=== PATIENT | male | born 1970 | race African-American/Black ===

== ENCOUNTER 2016-09-08 14:37 | Emergency (ER) | payer OTHER ==
--- NOTE | 2016-09-08 15:01 | ED NURSING NOTES ---
Clinical Report - Nurses [facility] [place] [address] 09/08/2016 14:41 Patient: CHESTER GATES TRIAGE Triage time 14:49. Acuity: LEVEL 5. Chief Complaint: LEFT EAR PAIN. Alert. No acute distress. ELIA COMA SCORE: Elia Coma Scale: 15- eyes open spontaneously (4); best verbal response- oriented x 4 (5); best motor response- obeys commands (6). --14:52 Rachele Silverio R.N. 14:49 09/08/16. BP: 148/80. HR: 94. RR: 16. O2 saturation: 98%. Temp: 96 F (oral). Pain level now: 8/10. --14:52 Rachele Silverio R.N. Weight: 81.6 kg stated. Height/Length: 66 inches Per Patient. BMI: 29. --14:51 Rachele Silverio R.N. Medications None. --14:50 Rachele Silverio R.N. Medication/allergy information source: the patient. --14:52 Rachele Silverio R.N. Allergies No Known Drug Allergy. --14:50 Rachele Silverio R.N. History Arrived by private vehicle. Historian: patient. Unaccompanied. Primary physician (Devi). Onset. (about 1 week). SOCIAL HX: Never smoker. No alcohol use or drug use. FALL RISK ASSESSMENT: Fall risk assessment completed. No fall risk identified. FUNCTIONAL ASSESSMENT: Functional assessment: no impairments noted. LEARNING NEEDS ASSESSMENT: The learning needs assessment revealed no barriers. --14:52 Rachele Silverio R.N. PROBLEMS: no known problems. ADDITIONAL SURGERIES: no known surgeries. Assessment GENERAL / NEURO / PSYCH: Alert. Oriented X 4. Appears in no acute distress. Patient appears calm and cooperative. RESPIRATORY: Respirations not labored. SKIN: Skin is warm and dry. --14:52 Rachele Silverio R.N. Interventions ID band on patient. To treatment room. --14:52 Rachele Silverio R.N. PHYSICAL ASSESSMENT 14:53 09/08/16. Ambulatory to room. GENERAL / NEURO / PSYCH: Alert. Appears in no acute distress. RESPIRATORY: Respirations not labored. SKIN: Skin is warm and dry. --14:53 Rachele Silverio R.N. NURSING PROGRESS NOTES 14:53 09/08/16. Head of bed elevated. Call light placed in reach. Side rails up x 1. Bed placed in lowest position. Brakes of bed on. --14:53 Rachele Silverio R.N. DISPOSITION / DISCHARGE Departure time: 15:10 Sep 08 2016. Condition at departure: stable. The goals identified in the patient's plan of care were met. No learning barriers present. Discharge instructions provided and reviewed with the patient. Reviewed warnings (Pt instructed not to drive while taking Benadryl). Reviewed medication(s) side effects, precautions, dosing and course information. Prescription(s) given to the patient (Sudafed, Motrin, Amoxicillin, Diphenhydramine). Reviewed referral to a primary care physician for followup. Patient verbalized understanding. Written instructions provided in [place]. The patient was discharged home. He left the Emergency Department ambulatory and via private vehicle. Patient driving. ( Pt dc'd in stable condition, ambulatory, VSS, afebrile, questions were answered, Pt verbalized understanding of DC POC.). --15:11 Sudhir Hinojosa R.N. 15:10 09/08/16. BP: 139/76. HR: 85. RR: 16. O2 saturation: 99% on room air. Temp: 97.8 F. Pain level now: 10/06. --15:11 Sudhir Hinojosa R.N. Locked/Released at 09/08/2016 15:15 by Sudhir Hinojosa R.N.
--- NOTE | 2016-09-08 15:01 | ED NURSING NOTES ---
Clinical Report - Nurses [facility] [place] [place] [address] 09/08/2016 14:41 Patient: CHESTER GATES TRIAGE Triage time 14:49. Acuity: LEVEL 5. Chief Complaint: LEFT EAR PAIN. Alert. No acute distress. ELIA COMA SCORE: Elia Coma Scale: 15- eyes open spontaneously (4); best verbal response- oriented x 4 (5); best motor response- obeys commands (6). --14:52 Rachele Silverio R.N. 14:49 09/08/16. BP: 148/80. HR: 94. RR: 16. O2 saturation: 98%. Temp: 96 F (oral). Pain level now: 8/10. --14:52 Rachele Silverio R.N. Weight: 81.6 kg stated. Height/Length: 66 inches Per Patient. BMI: 29. --14:51 Rachele Silverio R.N. Medications None. --14:50 Rachele Silverio R.N. Medication/allergy information source: the patient. --14:52 Rachele Silverio R.N. Allergies No Known Drug Allergy. --14:50 Rachele Silverio R.N. History Arrived by private vehicle. Historian: patient. Unaccompanied. Primary physician (Devi). Onset. (about 1 week). SOCIAL HX: Never smoker. No alcohol use or drug use. FALL RISK ASSESSMENT: Fall risk assessment completed. No fall risk identified. FUNCTIONAL ASSESSMENT: Functional assessment: no impairments noted. LEARNING NEEDS ASSESSMENT: The learning needs assessment revealed no barriers. --14:52 Rachele Silverio R.N. PROBLEMS: no known problems. ADDITIONAL SURGERIES: no known surgeries. Assessment GENERAL / NEURO / PSYCH: Alert. Oriented X 4. Appears in no acute distress. Patient appears calm and cooperative. RESPIRATORY: Respirations not labored. SKIN: Skin is warm and dry. --14:52 Rachele Silverio R.N. Interventions ID band on patient. To treatment room. --14:52 Rachele Silverio R.N. PHYSICAL ASSESSMENT 14:53 09/08/16. Ambulatory to room. GENERAL / NEURO / PSYCH: Alert. Appears in no acute distress. RESPIRATORY: Respirations not labored. SKIN: Skin is warm and dry. --14:53 Rachele Silverio R.N. NURSING PROGRESS NOTES 14:53 09/08/16. Head of bed elevated. Call light placed in reach. Side rails up x 1. Bed placed in lowest position. Brakes of bed on. --14:53 Rachele Silverio R.N. DISPOSITION / DISCHARGE Departure time: 15:10 Sep 08 2016. Condition at departure: stable. The goals identified in the patient's plan of care were met. No learning barriers present. Discharge instructions provided and reviewed with the patient. Reviewed warnings (Pt instructed not to drive while taking Benadryl). Reviewed medication(s) side effects, precautions, dosing and course information. Prescription(s) given to the patient (Sudafed, Motrin, Amoxicillin, Diphenhydramine). Reviewed referral to a primary care physician for followup. Patient verbalized understanding. Written instructions provided in [place]. The patient was discharged home. He left the Emergency Department ambulatory and via private vehicle. Patient driving. ( Pt dc'd in stable condition, ambulatory, VSS, afebrile, questions were answered, Pt verbalized understanding of DC POC.). --15:11 Sudhir Hinojosa R.N. 15:10 09/08/16. BP: 139/76. HR: 85. RR: 16. O2 saturation: 99% on room air. Temp: 97.8 F. Pain level now: 10/06. --15:11 Sudhir Hinojosa R.N. Locked/Released at 09/08/2016 15:15 by Sudhir Hinojosa R.N.
--- NOTE | 2016-09-08 15:01 | ED CLINICAL REPORT ---
Clinical Report - Physicians/Mid Levels [facility] [address] [place] [address] 09/08/2016 14:41 Patient: CHESTER GATES Time Seen: 15:05 Sep 08 2016. Arrived- By private vehicle. Historian- patient. HISTORY OF PRESENT ILLNESS Chief Complaint: EARACHE. This started 7 days and is still present. Location- left ear. The pain is described as moderate. The patient has had ear pain and hearing loss. No ear drainage, nasal discharge, complaint of foreign body in the ear, ear trauma or jaw pain. He has had nasal congestion. (patient reports loss of hearing, left ear pain over the last 7 days. He denies any swimming activity. Denies any trauma. Denies any drainage from the ear. Denies any runnarhea. patient denies a cough. Denies any fevers or chills. Denies headache.). REVIEW OF SYSTEMS No fever, cough, difficulty breathing or diarrhea. All systems otherwise negative, except as recorded above. SOCIAL HISTORY Never smoker. No alcohol use or drug use. PHYSICAL EXAM Appearance: Alert. No acute distress. Ear (left): There is erythema and dullness of the tympanic membrane and fluid behind the tympanic membrane. Throat: Pharynx normal. No mouth ulcerations or tonsillar exudate. Neck: Normal inspection. Neck supple. CVS: Normal heart rate and rhythm. Respiratory: No respiratory distress. Breath sounds normal. Skin: Skin warm. Normal skin color. Neuro: Oriented X 3. No motor deficit. PROGRESS AND PROCEDURES Course of Care: Patient in the emergency Department was no mastoid tenderness. No drainage. TM is intact. No cerumen of the left ear. No lymphadenopathy. Signs of acute otitis media. Patient afebrile, stable for outpatient management. Patient is stable. The patient's symptoms are unchanged. Patient/family counseled. Disposition: Discharged. Condition: good. CLINICAL IMPRESSION Acute left otitis media. INSTRUCTIONS Prescription Medications: Amoxicillin 500 mg tablets: Take 1 orally every 8 hours for 10 days. Dispense thirty (30). No refills. Motrin 800 mg tablets: take 1 tablet orally every 8 hours for 5 days, as needed for pain. Dispense fifteen (15). No refill. Substitution is permissible. OTC Medications: Sudafed 60 mg tabs (available over the counter): take 1 tablet orally every 8 hours for 3 days, as needed for congestion. Dispense ten (10). Benadryl Allergy 25 mg (available over the counter): at bedtime for 5 days. Dispense five (5). No refill. Substitution is permissible. Follow-up: Follow up with your doctor in three days. (Electronically signed by Shira Cannon P.A.-C 09/08/2016 15:09)
--- NOTE | 2016-09-08 15:16 | ED MAR SUMMARY ---
..... Medication Administration Record [facility] [address] [place] [address] Patient: CHESTER GATES Visit ID: [id number] 45y, M Weight: 81.6 kg Height/Length: 66 in BMI: 29 ALLERGIES: No Known Drug Allergy
--- NOTE | 2016-09-08 15:16 | ED DISCHARGE INSTRUCTIONS ---
Patient: CHESTER GATES General Instructions [facility] VisitID: [id number] [place] [address] 45y, M Registration Date/Time: 09/08/2016 Acute left otitis media. INSTRUCTIONS Prescription Medications: Amoxicillin 500 mg tablets: Take 1 orally every 8 hours for 10 days. Dispense thirty (30). No refills. Motrin 800 mg tablets: take 1 tablet orally every 8 hours for 5 days, as needed for pain. Dispense fifteen (15). No refill. Substitution is permissible. OTC Medications: Sudafed 60 mg tabs (available over the counter): take 1 tablet orally every 8 hours for 3 days, as needed for congestion. Dispense ten (10). Benadryl Allergy 25 mg (available over the counter): at bedtime for 5 days. Dispense five (5). No refill. Substitution is permissible. Follow-up: Follow up with your doctor in three days. ADDITIONAL INFORMATION Middle Ear Infection (Adult) You have an infection of the middle ear (the space behind the eardrum). It can occur as a result of the common cold. This is because congestion can block the internal passage (eustachian tube) that drains fluid from the middle ear. When the middle ear fills with fluid, bacteria can grow there and cause an infection. Oral antibiotics are used to treat this illness, not ear drops. Symptoms usually start to improve within 1-2 days of treatment. Home Care: Finish all of the antibiotic medicine prescribed, even though you may feel better after the first few days. You may use acetaminophen (Tylenol) or ibuprofen (Motrin, Advil) to control pain, unless something else was prescribed. [NOTE: If you have chronic liver or kidney disease or have ever had a stomach ulcer or GI bleeding, talk with your doctor before using these medicines.] (Do not give aspirin to anyone under 18 years of age who is ill with a fever. It may cause severe liver damage.) Follow Up with your doctor or this facility in two weeks if all symptoms have not cleared, or if hearing does not return to normal within one month. Get Prompt Medical Attention if any of the following occur: Ear pain gets worse or does not improve after three days of treatment Unusual drowsiness or confusion Neck pain, stiff neck or headache Fluid or blood draining from the ear canal Fever of 100.4F (38C) or higher after 3 days of antibiotics, or as directed by your healthcare provider Convulsion (seizure) Pseudoephedrine Hydrochloride Oral tablet [Abuse Deterrent] What is this medicine? PSEUDOEPHEDRINE (willis mendoza e FED rin) is a decongestant. It is used to treat congestion of the nose or sinuses. How should I use this medicine? Take this medicine by mouth with a glass of water. Follow the directions on the package or prescription label. Take your medicine at regular intervals. Do not take your medicine more often than directed. Talk to your remnants cutter regarding the use of this medicine in children. While this drug may be prescribed for children as young as 6 years of age for selected conditions, precautions do apply. Patients over 65 years old may have a stronger reaction and need a smaller dose. What side effects may I notice from receiving this medicine? Side effects that you should report to your doctor or health long term care phlebotomist as soon as possible: allergic reactions like skin rash, itching or hives, swelling of the face, lips, or tongue bloody diarrhea with stomach pain breathing problems chest pain confused, agitated, nervous fast, irregular heartbeat feeling faint or lightheaded, falls hallucinations high blood pressure pain, tingling, numbness in the hands or feet trouble passing urine or change in the amount of urine trouble sleeping Side effects that usually do not require medical attention (report to your doctor or health long term care phlebotomist if they continue or are bothersome): headache loss of appetite nausea, stomach upset What may interact with this medicine? Do not take this medicine with any of the following medications: bromocriptine ergot alkaloids like dihydroergotamine, ergonovine, ergotamine, methylergonovine MAOIs like Carbex, Eldepryl, Marplan, Nardil, and Parnate stimulant medicines for attention disorders, weight loss, or to stay awake This medicine may also interact with the following medications: alcohol atropine bretylium caffeine digoxin linezolid mecamylamine medicines for blood pressure medicines for depression, anxiety, or psychotic disturbances like fluoxetine, sertraline medicines for enlarged prostate medicines for sleep other medicines for cold, cough, or allergy procarbazine reserpine some heart medicines like metoprolol Sumi's Wort What if I miss a dose? If you miss a dose, take it as soon as you can. If it is almost time for your next dose, take only that dose. Do not take double or extra doses. Where should I keep my medicine? Keep out of the reach of children. Store at room temperature between 15 and 25 degrees C (59 and 77 degrees F). Protect from heat and moisture. Throw away any unused medicine after the expiration date. What should I tell my health care provider before I take this medicine? They need to know if you have any of the following conditions: diabetes glaucoma heart disease high blood pressure kidney disease prostate trouble taken an MAOI like Carbex, Eldepryl, Marplan, Nardil, or Parnate in last 14 days thyroid disease trouble passing urine an unusual or allergic reaction to pseudoephedrine, other medicines, foods, dyes, or preservatives or trying to get breast-feeding What should I watch for while using this medicine? Tell your doctor or healthcare professional if your symptoms do not start to get better or if they get worse. See your doctor if you are not better in 7 days or if you have a fever. You have been given the following additional information: Otitis Media, Abx Tx (Adult) Pseudoephedrine Hydrochloride Oral tablet [Abuse Deterrent] (Electronically signed by Shira Cannon P.A.-C 09/08/2016 15:09)
--- NOTE | 2016-09-08 15:16 | ED MAR SUMMARY ---
..... Medication Administration Record [facility] [address] [place] [address] Patient: CHESTER GATES Visit ID: [id number] 45y, M Weight: 81.6 kg Height/Length: 66 in BMI: 29 ALLERGIES: No Known Drug Allergy
--- NOTE | 2016-09-08 15:16 | ED MED RECONCILIATION SUMMARY ---
Patient: CHESTER GATES Medication Reconciliation Report [facility] VisitID: [id number] [place] [address] 45y, M Registration Date/Time: 09/08/2016 Weight: 81.6 kg Height/Length: 66 in. BMI: 29.0 ALLERGIES: No Known Drug Allergy The patient's Home Medications are listed below: NONE. The source(s) of the original Home Medication information: patient The following Medications were given to the patient in the Emergency Department: None. The following Medications were prescribed to the patient: Amoxicillin 500 mg tablets: Take 1 orally every 8 hours for 10 days. Dispense thirty (30). No refills. -- Shira Cannon, P.A.-C Motrin 800 mg tablets: take 1 tablet orally every 8 hours for 5 days, as needed for pain. Dispense fifteen (15). No refill. Substitution is permissible. -- Shira Cannon, P.A.-C Sudafed 60 mg tabs (available over the counter): take 1 tablet orally every 8 hours for 3 days, as needed for congestion. Dispense ten (10). -- Shira Cannon, P.A.-C Benadryl Allergy 25 mg (available over the counter): at bedtime for 5 days. Dispense five (5). No refill. Substitution is permissible. -- Shira Cannon, P.A.-C
--- NOTE | 2016-09-08 15:16 | ED MED RECONCILIATION SUMMARY ---
Patient: CHESTER GATES Medication Reconciliation Report [facility] VisitID: [id number] [place] [address] 45y, M Registration Date/Time: 09/08/2016 Weight: 81.6 kg Height/Length: 66 in. BMI: 29.0 ALLERGIES: No Known Drug Allergy The patient's Home Medications are listed below: NONE. The source(s) of the original Home Medication information: patient The following Medications were given to the patient in the Emergency Department: None. The following Medications were prescribed to the patient: Amoxicillin 500 mg tablets: Take 1 orally every 8 hours for 10 days. Dispense thirty (30). No refills. -- Shira Cannon, P.A.-C Motrin 800 mg tablets: take 1 tablet orally every 8 hours for 5 days, as needed for pain. Dispense fifteen (15). No refill. Substitution is permissible. -- Shira Cannon, P.A.-C Sudafed 60 mg tabs (available over the counter): take 1 tablet orally every 8 hours for 3 days, as needed for congestion. Dispense ten (10). -- Shira Cannon, P.A.-C Benadryl Allergy 25 mg (available over the counter): at bedtime for 5 days. Dispense five (5). No refill. Substitution is permissible. -- Shira Cannon, P.A.-C
== END 2016-09-08 15:10 | disposition home or self-care (01) ==
LOC: ED SRH 14:37
DX: H66.92 Otitis media, unspecified, left ear (principal)